=== PATIENT | female | born 1990 | race Two or more races ===

== ENCOUNTER 2022-05-02 19:43 | Emergency (ER) | payer SELFPAY ==
[~2022-05-02] VITALS: Ht 162.6 cm; Wt 59.0 kg
[2022-05-02 20:19] VITALS: BP 111/66
[2022-05-02] MEDS ORDERED: CARI350T PO (20:31)
--- NOTE | 2022-05-02 21:55 | NUR ---
Patient discharged to home in stable condition. Written and verbal after care instructions given. Patient verbalizes understanding of instruction.
== END 2022-05-02 21:56 | disposition home or self-care (01) ==
LOC: ER 19:43
DX: S39.011A Strain of muscle, fascia and tendon of abdomen, initial encounter (principal); Z88.8 Allergy status to other drugs, medicaments and biological substances; Z60.2 Problems related to living alone; Z79.899 Other long term (current) drug therapy; X58.XXXA Exposure to other specified factors, initial encounter; Y93.89 Activity, other specified; Y92.89 Other specified places as the place of occurrence of the external cause; Y99.8 Other external cause status